=== PATIENT | female | born 1995 | race Caucasian/White ===

== ENCOUNTER 2016-12-17 21:37 | Observation (INO) | payer BC ==
[2016-12-17] MEDS ORDERED: HYDROmorphONE/DILAUDID 1 MG/ML SYR IVP ONE (22:08)
[2016-12-17] MEDS ORDERED: ONDANSETRON 4 MG/2 ML VIAL IVP ONE (22:08)
[2016-12-17] MEDS ORDERED: NS 1,000 ML IV ONE (22:08)
[2016-12-17 23:08] LABS: % IMMATURE GRANULYOCYTES 0.3 % (0.0-1.1); ABSOLUTE IMMATURE GRANULOCYTES 0.05 10^3/uL (0.00-0.10); ADD DIFF? NO; ADD MORPH? NO; ADD SCAN? NO; ATYPICAL LYMPHOCYTE FLAG 0 (0-99); FRAGMENT RBC FLAG 0 (0-99); LEFT SHIFT FLG 0 (0-99); LIPEMIA HEMOLYSIS FLAG 90 (0-99); MEAN CELL HEMOGLOBIN 29.3 pg (27.9-34.1); MEAN CELL HEMOGLOBIN CONCENTR. 34.8 g/dL (32.4-36.7); MEAN CELL VOLUME 84.2 fL (81.5-99.8); PLATELET CLUMPS FLAG 0 (0-99); PLATELET COUNT 358 10^3/uL (150-400); RED BLOOD CELL COUNT 5.46 10^6/uL (4.18-5.33); RED CELL DISTRIBUTION WIDTH 12.7 % (11.5-15.2)
[2016-12-17 23:24] LABS: ALANINE AMINOTRANSFERASE 24 IU/L (9-52); ALBUMIN 4.7 g/dL (3.5-5.0); ALKALINE PHOSPHATASE 73 IU/L (38-126); ANION GAP 13 mEq/L (8-16); ASPARTATE AMINOTRANSFERASE 25 IU/L (14-46); BILIRUBIN-CONJUGATED 0.4 mg/dL (0.0-0.5); BILIRUBIN-UNCONJUGATED 0.6 mg/dL (0.0-1.1); CARBON DIOXIDE 25 mEq/l (22-31); CHLORIDE 105 mEq/L (97-110); CREATININE 0.7 mg/dL (0.6-1.0); GLOMERULAR FILTRATION RATE > 60; GLUCOSE 82 mg/dL (70-100); POTASSIUM 3.7 mEq/L (3.5-5.2); SODIUM 143 mEq/L (134-144)
[2016-12-18 00:11] LABS: COLOR YELLOW; LEUKOCYTE ESTERASE,URINE TRACE (NEGATIVE); NITRITE,URINE NEGATIVE (NEGATIVE)
[2016-12-18 00:17] LABS: BACTERIA TRACE /hpf (NONE SEEN); MUCUS 1+ /lpf (NONE-1+)
[2016-12-18] MEDS ORDERED: IOPAMIDOL (ISOVUE-300) 100 ML BTL IV ONE (00:38)
--- NOTE | 2016-12-18 00:41 | EDPHY ---
H & P Stated Complaint: abd pain, vomiting, diarrhea today, also abnormal vaginal bleeding - Personal History Current Tetanus/Diphtheria Vaccine: Unsure Current Tetanus Diphtheria and Acellular Pertussis (TDAP): Unsure - Medical/Surgical History Hx Asthma: No Hx Chronic Respiratory Disease: No Hx Diabetes: No Hx Cardiac Disease: No Hx Renal Disease: No Hx Cirrhosis: No Hx Alcoholism: No Hx HIV/AIDS: No Hx Splenectomy or Spleen Trauma: No Other PMH: none - Social History Smoking Status: Never smoked HPI/ROS: Chief complaint: Abdominal pain History of present illness: This is a 20-year-old female who presents to the emergency department for evaluation of abdominal pain. Patient reports the onset of symptoms today. She has had associated nausea and vomiting as well as diarrhea. She is also concerned she has had some vaginal bleeding. She states she has an IUD in place and therefore normally she gets spotting but this is more heavy than usual. She denies specific precipitating factors. She denies alleviating factors. She denies other associated signs or symptoms including no fevers and no urinary symptoms. Review of systems: A 10 point review of systems was obtained and other than described above was negative (Damion Iyer) - Physical Exam Exam: General Appearance: Alert, nontoxic. Eyes: Pupils equal and round no pallor or injection. ENT, Mouth: Mucous membranes moist. Respiratory: There are no retractions, lungs are clear to auscultation. Cardiovascular: Regular rate and rhythm. Gastrointestinal: Bowel sounds are normal. Abdomen is soft and nondistended. There is diffuse tenderness throughout the left upper and lower quadrants bilaterally including McBurney's. No Jade sign. No peritoneal signs. Neurological: Alert and oriented. Strength and sensation intact and symmetrical. Skin: Warm and dry, no rashes. Musculoskeletal: Neck is supple nontender. Extremities are symmetrical, full range of motion. Psychiatric: Patient is oriented X 3, there is no agitation. (Damion Iyer) Constitutional: Initial Vital Signs Temperature (C) 36.8 C 12/17/16 21:43 Heart Rate 123 H 12/17/16 21:43 Respiratory Rate 16 12/17/16 21:43 Blood Pressure 138/83 H 12/17/16 21:43 O2 Sat (%) 94 12/17/16 21:43 O2 Delivery Mode Room Air Allergies/Adverse Reactions: No Known Allergies Allergy (Verified 12/17/16 21:46) Home Medications: Medication Instructions Recorded Nitrofurantoin Monohyd/M-Cryst 100 mg PO BID #4 capsule 12/18/16 [Macrobid 100 mg Capsule] Medical Decision Making ED Course/Re-evaluation: Patient seen in conjunction with my secondary supervising physician Dr. Buster Perez. Patient presents to the emergency department for evaluation of abdominal pain with nausea, vomiting and diarrhea. Further she has vaginal bleeding more heavy than usual. On presentation she is nontoxic. She is tachycardic. She is tender to palpation on examination of the abdomen. Blood studies concerning for an elevated white blood cell count. Ultrasound of the pelvis is unremarkable. Nondiagnostic of appendix. She is symptomatically treated and reports improvement in symptoms but continues to have abdominal pain. Therefore CT scan will be pursued. Care of patient is turned over Dr. Buster Perez at end of shift pending CT scan results. (Damion Iyer) CT scan of the abdomen pelvis with IV contrast The results of the study are this shows abnormal ileum, 20 cm section of acute inflammation, mesenteric edema and free fluid in the abdomen.. Normal appendix. The study was read by Dr. Coulter. I viewed the images myself on the PACS system. 0144: I did consult Dr. Segundo. Does not think based on the history and exam findings and CT and blood work that this an acute surgical abdomen. He does recommend patient getting admitted to the medicine service for a Medical ileitis. He Will consult if they need him. 0153AM: Spoke with Gastroenterology: Sidra Ward with Ster[facility]. Recommends medical admission will consult on patient. 0158AM: Spoke with Dr. Myers Hospalist who agrees to admit this patient. At this time this patient is hemodynamically stable no acute distress no fever no vomiting abdomen remained soft there is no peritoneal signs blood work has been reviewed shows a leukocytosis and a lactic acid that is normal. Most likely with mesenteric edema, free fluid in the abdomen, an abnormal section of ileum this is most likely ileitis versus Crohn's disease versus enteritis. Will keep in the hospital for close monitoring of the abdomen serial abdominal exams nausea vomiting control and IV hydration. Patient agrees for this plan. ( Buster Perez) Differential Diagnosis: Included but not limited to gastritis, gastroenteritis, biliary tract disease, pancreatitis, colitis, appendicitis, pelvic inflammatory disease, ovarian cyst or ovarian torsion, with associated complications she, urinary tract infection (Damion Iyer) 0139: re-examination at this time the patient is resting comfortably she is not vomiting she has no fever. Abdomen remained soft she has no peritoneal signs. Her CT scan has been reviewed and does show significant amount of abnormality of inflammation of her ileum like a 20CM length of inflammation, also has mesenteric edema and free fluid. Due to these abnormal findings I have hung a 2nd L fluid, I will check a lactic acid and will consult surgery. ( Buster Perez) - Data Points Laboratory Results: Laboratory Results 12/17/16 22:55 12/17/16 22:55 Medications Given: Discontinued Medications Hydromorphone HCl (Dilaudid) 0.5 mg IVP EDNOW ONE Stop: 12/17/16 22:09 Last Admin: 12/17/16 22:55 Dose: 0.5 mg Hydromorphone HCl (Dilaudid) 0.2 - 0.4 mg IVP Q4HRS PRN PRN Reason: Pain, Severe Unable to Take PO Stop: 12/28/16 02:17 Last Admin: 12/18/16 02:43 Dose: 0.4 mg Sodium Chloride (Ns) 1,000 mls @ 0 mls/hr IV ONCE ONE PRN Reason: Wide Open Stop: 12/17/16 22:09 Last Admin: 12/17/16 22:55 Dose: 1,000 mls Sodium Chloride (Ns) 1,000 mls @ 3,000 mls/hr IV ONCE ONE Stop: 12/18/16 01:45 Last Admin: 12/18/16 01:36 Dose: 1,000 mls Ceftriaxone Sodium/Dextrose (Rocephin 1 Gm (Premix)) 50 mls @ 100 mls/hr IV DAILY ANNIE PRN Reason: Protocol Stop: 01/17/17 11:29 Last Admin: 12/18/16 11:52 Dose: 50 mls Methylprednisolone Sodium Succinate (Solu-Medrol) 125 mg IVP EDNOW ONE Stop: 12/18/16 01:55 Last Admin: 12/18/16 02:04 Dose: 125 mg Ondansetron HCl (Zofran) 4 mg IVP EDNOW ONE Stop: 12/17/16 22:09 Last Admin: 12/17/16 22:56 Dose: 4 mg Departure - Departure Disposition: [facility] Inpatient Acute Clinical Impression: Abdominal pain Qualifiers: Abdominal location: generalized Qualified Code(s): R10.84 - Generalized abdominal pain Condition: Good
[2016-12-18] MEDS ORDERED: NS 1,000 ML IV ONE (01:26)
[2016-12-18] MEDS ORDERED: methylPREDNISolone SOD SUCC 125 MG/2 ML VIAL IVP ONE (01:54)
[2016-12-18] MEDS ORDERED: methylPREDNISolone SOD SUCC 125 MG/2 ML VIAL ONE (01:59)
[2016-12-18] MEDS ORDERED: ONDANSETRON DISINTEGRATING 4 MG TAB PO PRN (02:18)
[2016-12-18] MEDS ORDERED: ACETAMINOPHEN 325 MG TAB PO PRN (02:18)
[2016-12-18] MEDS ORDERED: HYDROmorphONE/DILAUDID 1 MG/ML SYR IVP PRN (02:18)
[2016-12-18] MEDS ORDERED: ONDANSETRON 4 MG/2 ML VIAL IVP PRN (02:18)
[2016-12-18] MEDS ORDERED: HYDROmorphONE/DILAUDID 1 MG/ML SYR ONE (02:26)
[2016-12-18] MEDS ORDERED: NS 1,000 ML IV SCH (02:30)
--- NOTE | 2016-12-18 02:43 | GHP ---
[f rep st] HISTORY AND PHYSICAL DATE OF ADMISSION: 12/18/2016 CHIEF COMPLAINT: Abdominal pain, nausea, vomiting and diarrhea. HISTORY OF PRESENT ILLNESS: This is a 20-year-old female who last night developed abdominal pain, m ostly epigastric with nausea, vomiting and diarrhea. It has continued today although she is feeling a little bit better. She has been able to eat some but has had significant decreased p.o. intake. Before that, she describes a sensitive stomach but has not had any episodes of chronic diarrhea or blood in her stools. No weight loss. REVIEW OF SYSTEMS: A 10-point review of systems was obtained and was negative. PAST MEDICAL HISTORY: None. MEDICATIONS: IUD. SOCIAL HISTORY: No smoking or alcohol. FAMILY HISTORY: No history of autoimmune disease, Crohn's or ulcerative colitis. PHYSICAL EXAMINATION: VITAL SIGNS: Afebrile, blood pressure is 119/66, heart initially 123, is now at 85, oxygen saturation 94% on room air. GENERAL: The patient is well developed, in no apparent distress. HEENT: Nonicteric sclerae. Extraocular movements intact. Moist mucous membranes. NECK: Supple. No thyromegaly. LUNGS: Good effort. Clear to auscultation bilaterally. CARDIOVASCULAR : Regular rate and rhythm. No murmurs, gallops. ABDOMEN: Positive bowel sounds. Soft. Mild epi gastric tenderness. No rebound or guarding. EXTREMITIES: No clubbing, cyanosis, or edema. SKIN: Without rash, dry, intact. NEUROLOGIC: Alert and oriented x3. Moving all 4 extremities equally. PSYCH: Normal affect. LABORATORY DATA: White blood cell count 15, hemoglobin 15, platelets are 358. Chemistries completel y normal. UA has some blood in it but otherwise negative. CT scan, per ER physician, shows terminal ilium inflammation as well as some small bowel inflammatio n. ASSESSMENT: This is a 20-year-old female presenting with acute abdominal pain, nausea, vomiting and diarrhea. Probable gastroenteritis. The patient is not endorsing any chronic symptoms that would suggest infl ammatory bowel disease. It seems to be infectious in origin. We will get a GI PCR panel. We will give IV fluids and monitor. If she is improving tomorrow and is eating she can probably go home. /[id number]/MODL
[2016-12-18 05:17] LABS: % IMMATURE GRANULYOCYTES 0.4 % (0.0-1.1); ABSOLUTE IMMATURE GRANULOCYTES 0.05 10^3/uL (0.00-0.10); ADD DIFF? NO; ADD MORPH? NO; ADD SCAN? NO; ATYPICAL LYMPHOCYTE FLAG 0 (0-99); FRAGMENT RBC FLAG 0 (0-99); HEMATOCRIT 41.8 % (38.0-47.0); HEMOGLOBIN 13.9 g/dL (12.6-16.3); LEFT SHIFT FLG 0 (0-99); LIPEMIA HEMOLYSIS FLAG 80 (0-99); MEAN CELL HEMOGLOBIN 28.7 pg (27.9-34.1); MEAN CELL HEMOGLOBIN CONCENTR. 33.3 g/dL (32.4-36.7); MEAN CELL VOLUME 86.2 fL (81.5-99.8); MEAN PLATELET VOLUME 10.1 fL (8.7-11.7); PLATELET CLUMPS FLAG 0 (0-99); PLATELET COUNT 297 10^3/uL (150-400); RED BLOOD CELL COUNT 4.85 10^6/uL (4.18-5.33); RED CELL DISTRIBUTION WIDTH 12.8 % (11.5-15.2)
[2016-12-18 05:36] LABS: ALANINE AMINOTRANSFERASE 18 IU/L (9-52); ALBUMIN 3.9 g/dL (3.5-5.0); ALKALINE PHOSPHATASE 55 IU/L (38-126); ANION GAP 12 mEq/L (8-16); ASPARTATE AMINOTRANSFERASE 23 IU/L (14-46); CALCIUM 8.7 mg/dL (8.5-10.4); CARBON DIOXIDE 18 mEq/l (22-31); CHLORIDE 110 mEq/L (97-110); CREATININE 0.6 mg/dL (0.6-1.0); GLOMERULAR FILTRATION RATE > 60; GLUCOSE 121 mg/dL (70-100); POTASSIUM 4.2 mEq/L (3.5-5.2); SODIUM 140 mEq/L (134-144); TOTAL PROTEIN 6.7 g/dL (6.3-8.2)
[2016-12-18 05:49] VITALS: O2SAT 96
[2016-12-18 09:24] VITALS: BP 115/62; PULSE 89; RESP 16; TEMP 98.2
--- NOTE | 2016-12-18 15:01 | GDS ---
[f rep st] DISCHARGE SUMMARY CHIEF COMPLAINT: 1. Abdominal pain. Suspected gastroenteritis. 2. Leukocytosis. 3. Urinary tract infection. HISTORY OF PRESENT ILLNESS: Patient is a 20-year-old female with no past medical history, who presented with sudden onset of crampy abdominal pain in the epigastric region with nausea, vomiting and diarrhea. She was able to eat a little bit; but had significantly decreased p.o. intake. She denies black or blood in stools. No rash or joint pain or swelling. No weight loss. ASSESSMENT AND PLAN: 1. Likely gastroenteritis: The patient with no further diarrhea here; thus, could not obtain a GI panel. She is tolerating p.o. today and wishes to go home. 2. Urinary tract infection: Urinalysis with few WBCs and suprapubic tenderness. Dose ceftriaxone today. DC with Macrobid for 2 more days. This may be contributing to some of her symptoms. 3. Leukocytosis: WBC initially 15, now trending down to 12. DISPOSITION: Patient is stable for discharge. FOLLOWUP: PCP. PE: afebrile GEN: NAD, CV: RRR, Lungs: CTA, BL, GI: soft, NT, ND, +BS : left suprapubic TTP , Neuro: no focal deficitd /[id number]/MODL MTDD
== END 2016-12-18 15:47 | disposition home or self-care (01) ==
LOC: INTOOBSV 12-18 01:59 → F3E 12-18 02:22
PROVIDERS: ADMIT Internal Medicine; ATTEND Internal Medicine
DX: R10.84 Generalized abdominal pain (principal); R11.2 Nausea with vomiting, unspecified; N39.0 Urinary tract infection, site not specified; D72.829 Elevated white blood cell count, unspecified
CPT/HCPCS: 74177; 76705; 76856; G0378; 96374; J0696; J1170; J2405; Q9967

== ENCOUNTER → 2017-03-21 | Outpatient (CLI) | payer BC ==
[~2017-03-21] MED LIST: GADOBUTROL 10 ML VIAL IVP ONE; GLUCAGON,HUMAN RECOMBINANT 0.3 MG in SYRINGE 0.3 ML IVP ONE
== END ==
LOC: FIMAGING 07:15
PROVIDERS: ATTEND Internal Medicine Gastroenterology
DX: R93.5 Abnormal findings on diagnostic imaging of other abdominal regions, including retroperitoneum (principal)
CPT/HCPCS: A9585; J1610

== ENCOUNTER 2018-01-28 23:10 | Observation (INO) | payer BC ==
[2018-01-28] MEDS ORDERED: NS 1,000 ML IV ONE (23:59)
[2018-01-28] MEDS ORDERED: KETOROLAC 15 MG/1 ML SDV IVP ONE (23:59)
[2018-01-28] MEDS ORDERED: FAMOTIDINE 20 MG/NACL 50 ML IV ONE (23:59)
--- NOTE | 2018-01-29 00:49 | EDPHY ---
H & P Stated Complaint: R flank/back and abd pain Time Seen by Provider: 01/28/18 23:47 HPI/ROS: HPI The patient presents with right lower quadrant abdominal pain which radiates to her right upper quadrant and right flank. Her symptoms began about an hour after eating a large lunch at 2:00 p.m.. They have gotten progressively worse throughout the course of the day. The pain is dull for the most part, though when it becomes more severe it feels sharp. It is getting progressively worse over the course of the day. It is worse with ambulation. She has associated nausea. She does not have any dysuria, she does not have any diarrhea or constipation. She had similar pain about 1 year ago and was diagnosed with a urinary tract infection.. REVIEW OF SYSTEMS Constitutional: No fever, no chills. Eyes: No discharge. ENT: No sore throat. Cardiovascular: No chest pain, no palpitations. Respiratory: No cough, no shortness of breath. Gastrointestinal: See HPI Genitourinary: No hematuria. Musculoskeletal: No back pain. Skin: No rashes. Neurological: No headache. PMHx: History of urinary tract infection Soc Hx: College student PHYSICAL General Appearance: Alert, no distress Eyes: Pupils equal and round no pallor or injection ENT, Mouth: Mucous membranes moist Respiratory: There are no retractions, lungs are clear to auscultation Cardiovascular: Regular rate and rhythm Gastrointestinal: Abdomen is soft with tenderness in the right lower quadrant and mild tenderness in the right upper quadrant without rebound or guarding Neurological: A&O, moves all extremities Skin: Warm and dry, no rashes Musculoskeletal: Neck is supple non tender Extremities: symmetrical, full range of motion Psychiatric: Patient is oriented X 3, there is no agitation Source: Patient Exam Limitations: No limitations - Personal History LMP (Females 10-55): IUD In Place Current Tetanus Diphtheria and Acellular Pertussis (TDAP): Yes - Medical/Surgical History Hx Asthma: No Hx Chronic Respiratory Disease: No Hx Diabetes: No Hx Cardiac Disease: No Hx Renal Disease: No Hx Cirrhosis: No Hx Alcoholism: No Hx HIV/AIDS: No Hx Splenectomy or Spleen Trauma: No Other PMH: wisdom teeth - Social History Smoking Status: Never smoked Constitutional: Initial Vital Signs Temperature (C) 37.2 C 01/28/18 23:12 Heart Rate 106 H 01/28/18 23:12 Respiratory Rate 16 01/28/18 23:12 Blood Pressure 131/96 H 01/28/18 23:12 O2 Sat (%) 93 01/28/18 23:12 O2 Delivery Mode Room Air Allergies/Adverse Reactions: No Known Allergies Allergy (Verified 01/28/18 23:11) Home Medications: Medication Instructions Recorded NK [No Known Home Meds] 01/28/18 Medical Decision Making - Diagnostics Imaging Results: Ultrasound right lower quadrant demonstrates appendicitis, measuring up to 11 mm with hyperemia and trace free fluid. Ultrasound pelvis demonstrates IUD in good position, with 16 mm right-sided ovarian follicle a small amount of free fluid. This is discussed with Dr. Acevedo of Radiology. Imaging: Discussed imaging studies w/ rn call center Radiologist, I viewed and interpreted images myself Procedures: Bedside limited abdominal Ultrasound- performed and interpreted by me. Indication: Right-sided abdominal pain Findings: Normal appearing gallbladder with no gallstones, no pericholecystic fluid, no gallbladder wall thickening; no right-sided hydronephrosis Impression: No hydronephrosis on the right, no sonographic evidence of cholecystitis or cholelithiasis. Differential Diagnosis: This is a 22-year-old healthy female who presents with right lower quadrant abdominal pain for the last several hours associated with nausea. On exam, she is tender in the right lower quadrant, also mildly tender in the right upper quadrant. Differential diagnosis includes appendicitis, ovarian cyst with torsion, ovarian cyst rupture, renal colic, biliary colic. In the emergency department, plan for pain medication, basic labs, ultrasound. I performed a bedside ultrasound to look at her right kidney which demonstrated no hydronephrosis, her gallbladder appear normal. Labs were checked and did reveal leukocytosis of 17,000. Formal right lower quadrant ultrasound did reveal findings consistent with appendicitis. I have consulted with Dr. Liang. We plan to admit her for appendicitis for OR later today. I have ordered antibiotics. I have discussed the diagnosis and general treatment plan with the patient. I have answered all of her questions. - Data Points Laboratory Results: Laboratory Results 01/28/18 23:59 01/28/18 23:59 01/29/18 01/28/18 01/28/18 00:50 23:59 23:59 WBC 17.04 10^3/uL H 10^3/uL (3.80-9.50) RBC 5.21 10^6/uL 10^6/uL (4.18-5.33) Hgb 14.4 g/dL g/dL (12.6-16.3) Hct 42.8 % % (38.0-47.0) MCV 82.1 fL fL (81.5-99.8) MCH 27.6 pg L pg (27.9-34.1) MCHC 33.6 g/dL g/dL (32.4-36.7) RDW 12.7 % % (11.5-15.2) Plt Count 321 10^3/uL 10^3/uL (150-400) MPV 9.8 fL fL (8.7-11.7) Neut % (Auto) 82.2 % H % (39.3-74.2) Lymph % (Auto) 9.6 % L % (15.0-45.0) Rhea % (Auto) 6.5 % % (4.5-13.0) Eos % (Auto) 0.8 % % (0.6-7.6) Baso % (Auto) 0.4 % % (0.3-1.7) Nucleat RBC Rel Count 0.0 % % (0.0-0.2) Absolute Neuts (auto) 14.01 10^3/uL H 10^3/uL (1.70-6.50) Absolute Lymphs (auto) 1.63 10^3/uL 10^3/uL (1.00-3.00) Absolute Monos (auto) 1.10 10^3/uL H 10^3/uL (0.30-0.80) Absolute Eos (auto) 0.14 10^3/uL 10^3/uL (0.03-0.40) Absolute Basos (auto) 0.07 10^3/uL 10^3/uL (0.02-0.10) Absolute Nucleated RBC 0.00 10^3/uL 10^3/uL (0-0.01) Immature Gran % 0.5 % % (0.0-1.1) Immature Gran # 0.09 10^3/uL 10^3/uL (0.00-0.10) Sodium 144 mEq/L mEq/L (135-145) Potassium 3.7 mEq/L mEq/L (3.5-5.2) Chloride 104 mEq/L mEq/L (97-110) Carbon Dioxide 24 mEq/l mEq/l (22-31) Anion Gap 16 mEq/L mEq/L (8-16) BUN 9 mg/dL mg/dL (7-23) Creatinine 0.6 mg/dL mg/dL (0.6-1.0) Estimated GFR > 60 Glucose 98 mg/dL mg/dL (70-100) Calcium 10.2 mg/dL mg/dL (8.5-10.4) Total Bilirubin 0.5 mg/dL mg/dL (0.1-1.4) AST 27 IU/L IU/L (14-46) ALT 26 IU/L IU/L (9-52) Alkaline Phosphatase 75 IU/L IU/L (38-126) Total Protein 8.2 g/dL g/dL (6.3-8.2) Albumin 4.8 g/dL g/dL (3.5-5.0) Lipase 145 IU/L IU/L (23-300) Urine Color YELLOW Urine Appearance CLEAR Urine pH 6.0 (5.0-7.5) Ur Specific [place] 1.009 (1.002-1.030) Urine Protein NEGATIVE (NEGATIVE) Urine Ketones NEGATIVE (NEGATIVE) Urine Blood NEGATIVE (NEGATIVE) Urine Nitrate NEGATIVE (NEGATIVE) Urine Bilirubin NEGATIVE (NEGATIVE) Urine Urobilinogen NEGATIVE EU EU (0.2-1.0) Ur Leukocyte Esterase NEGATIVE (NEGATIVE) Urine Glucose NEGATIVE (NEGATIVE) Medications Given: Sodium Chloride (Ns) 1,000 mls @ 200 mls/hr IV CONT ANNIE Stop: 07/28/18 01:44 Last Admin: 01/29/18 02:21 Dose: 1,000 mls Discontinued Medications Hydromorphone HCl (Dilaudid) 0.5 mg IVP EDNOW ONE Stop: 01/29/18 01:39 Last Admin: 01/29/18 02:32 Dose: Not Given Sodium Chloride (Ns) 1,000 mls @ 0 mls/hr IV EDNOW ONE; Wide Open PRN Reason: Protocol Stop: 01/29/18 00:00 Last Admin: 01/29/18 00:08 Dose: 1,000 mls Famotidine/Sodium Chloride (Pepcid 20 Mg (Premix)) 50 mls @ 200 mls/hr IV EDNOW ONE Stop: 01/29/18 00:13 Last Admin: 01/29/18 00:10 Dose: 50 mls Ceftriaxone Sodium/Dextrose (Rocephin 1 Gm (Premix)) 50 mls @ 100 mls/hr IV EDNOW ONE PRN Reason: Protocol Stop: 01/29/18 01:58 Last Admin: 01/29/18 01:54 Dose: 50 mls Metronidazole/Sodium Chloride (Flagyl 500 Mg (Premix)) 100 mls @ 100 mls/hr IV EDNOW ONE PRN Reason: Protocol Stop: 01/29/18 02:28 Last Admin: 01/29/18 02:32 Dose: 100 mls Ketorolac Tromethamine (Toradol) 15 mg IVP EDNOW ONE Stop: 01/29/18 00:00 Last Admin: 01/29/18 00:09 Dose: 15 mg Departure - Departure Disposition: [facility] Inpatient Acute Clinical Impression: Acute appendicitis Qualifiers: Acute appendicitis type: with localized peritonitis Qualified Code(s): K35.3 - Acute appendicitis with localized peritonitis Condition: Fair
[2018-01-29 00:54] LABS: PLATELET COUNT 321 10^3/uL (150-400)
[2018-01-29] MEDS ORDERED: HYDROmorphONE/DILAUDID 2 MG/ML INJ IVP ONE (01:38)
[2018-01-29] MEDS ORDERED: NS 1,000 ML IV SCH (01:45)
--- NOTE | 2018-01-29 02:31 | PDCONSULT ---
Medical Reception Note: CHIEF COMPLAINT: Right lower quadrant abdominal pain HISTORY OF PRESENT ILLNESS: This is a 22-year-old woman who presents with less than 24 hr history of abdominal pain starting as a stomach ache yesterday afternoon associated with nausea diaphoresis and chills. Pain subsequently localized in the right lower quadrant. She has no other symptoms. Pain relieved by narcotic medications in the hospital. Ultrasound and examination consistent with acute appendicitis. I was called for consultation regarding this diagnosis PAST MEDICAL HISTORY: None PAST SURGICAL HISTORY: [place] teeth extraction, IUD placement MEDICATION: None ALLERGIES: Andrew extract FAMILY HISTORY: Denies family history of bleeding dyscrasias, anesthetic issues or GI cancers SOCIAL HISTORY: Occasional alcohol denies smoking or drug use REVIEW OF SYSTEMS: Significant for abdominal pain nausea and diaphoresis along with rigors this is consistent with above diagnosis. All others reviewed and are negative OBJECTIVE: Temp Pulse Resp BP Pulse Ox 37.1 C 97 18 126/77 H 95 01/29/18 01:50 01/29/18 02:19 01/29/18 02:19 01/29/18 02:19 01/29/18 02:19 Alert oriented minimal distress Sclerae are anicteric extraocular motions intact oropharynx slightly dry Good dentition trachea midline no JVD or thyromegaly No cervical or supraclavicular adenopathy Regular rate and rhythm Clear to auscultation bilaterally no wheezes Abdomen soft tender in the right lower quadrant/flank. Minimal right CVA tenderness no rebound tenderness no psoas sign. No scars no hepatosplenomegaly Extremities 2+ over 2+ femoral dorsalis pedis pulses 2+ over 2+ radial pulses full range of motion muscle strength symmetric Skin normal turgor and tone Normal affect behavior normal LABS: 01/28/18 23:59 01/28/18 23:59 Total Bilirubin 0.5 mg/dL (0.1-1.4) 01/28/18 23:59 AST 27 IU/L (14-46) 01/28/18 23:59 ALT 26 IU/L (9-52) 01/28/18 23:59 IMAGING: Ultrasound personally on PACS reviewed tubular structure noncompressible right lower quadrant consistent with appendicitis IMPRESSION/PLAN: Acute appendicitis antibiotics had been given for treatment as and initiation of care. Laparoscopic appendectomy and other options including non operative care were discussed with the patient. All questions were addressed patient has opted for surgery. The risks benefits and alternatives to this procedure open clearly outlined verbal confirmation of understanding was obtained prior to getting written consent. The risks include but are not limited to bleeding, infection, injury to other structures that could require for surgery. We will proceed at the earliest opportunity.
[2018-01-29] MEDS ORDERED: ONDANSETRON 4 MG/2 ML VIAL IVP ONE (02:33)
[2018-01-29] MEDS ORDERED: BUPIVACAINE 0.5% 30 ML SDV ONE (02:36)
[2018-01-29] MEDS ORDERED: LR 1,000 ML IV SCH (03:00)
[2018-01-29] MEDS: LIDOCAINE 1% 300 MG/30 ML SDV ONE ×2 (04:12→06:28)
[2018-01-29] MEDS ORDERED: PROPOFOL 200 MG/20 ML VIAL ONE ×2 (05:53→05:55)
[2018-01-29] MEDS ORDERED: fentaNYL 100 MCG/2 ML INJ ONE ×2 (05:59→07:20)
[2018-01-29] MEDS ORDERED: KETOROLAC 15 MG/1 ML SDV IVP SCH (06:00)
[2018-01-29] MEDS ORDERED: DEXAMETHASONE 4 MG/ML VIAL IVP PRN (06:16)
[2018-01-29] MEDS ORDERED: ONDANSETRON 4 MG/2 ML VIAL IVP PRN (06:16)
[2018-01-29] MEDS ORDERED: ALBUTEROL 3 ML DEYVIAL IH PRN (06:16)
[2018-01-29] MEDS ORDERED: NS 500 ML IV PRN (06:16)
[2018-01-29] MEDS ORDERED: HYDROmorphONE/DILAUDID 2 MG/ML INJ IVP PRN (06:16)
[2018-01-29] MEDS ORDERED: LR 500 ML IV PRN (06:16)
[2018-01-29] MEDS ORDERED: NALOXONE HCL 0.4 MG/ML INJ IVP PRN (06:16)
--- NOTE | 2018-01-29 06:16 | PDANEPAE ---
ANE History of Present Illness here for lap lawrence SHARYN Past Medical History - Cardiovascular History Hx Hypertension: No Hx Arrhythmias: No Hx Chest Pain: No Hx Coronary Artery / Peripheral Vascular Disease: No Hx CHF / Valvular Disease: No Hx Palpitations: No - Pulmonary History Hx COPD: No Hx Asthma/Reactive Airway Disease: No Hx Recent Upper Respiratory Infection: No Hx Oxygen in Use at Home: No Hx Sleep Apnea: No - Endocrine History Hx Diabetes: No Hypothyroid: No Hyperthyroid: No Obesity: no - Renal History Hx Renal Disorders: No - Liver History Hx Hepatic Disorders: No - Neurological & Psychiatric Hx Hx Neurological and Psychiatric Disorders: No - Chronic Pain History Chronic Pain: No ANE Review of Systems Review of systems is: negative Review of Systems: - Exercise capacity Exercise capacity: >=4 METS ANE Patient History - Allergies Allergies/Adverse Reactions: No Known Allergies Allergy (Verified 01/28/18 23:11) - Home Medications Home medications: home medication list seen and reviewed Home Medications: NK [No Known Home Meds] 01/28/18 [Last Taken Unknown] - NPO status NPO Status: no food or drink >8 hours NPO Since - Liquids (Date): 02/28/18 NPO Since - Liquids (Time): 22:00 NPO Since - Solids (Date): 02/28/18 NPO Since - Solids (Time): 22:00 - Anes Hx Anes Hx: no prior problems - Smoking Hx Smoking Status: Never smoked ANE Labs/Vital Signs - Labs Result Diagrams: 01/28/18 23:59 01/28/18 23:59 - Vital Signs Vital Signs: reviewed preoperatively; see RN documention for details Blood Pressure: 112/81 Heart Rate: 96 Respiratory Rate: 16 O2 Sat (%): 95 Height: 154.94 cm Weight: 63.5 kg ANE Physical Exam - Airway Neck exam: FROM Mallampati Score: Class 1 - Pulmonary Pulmonary: no respiratory distress - Cardiovascular Cardiovascular: regular rate and rhythym - ASA Status ASA Status: I ANE Anesthesia Plan Anesthesia Plan: general endotracheal anesthesia
[2018-01-29] MEDS ORDERED: SUGAMMADEX SODIUM 200 MG/2 ML VIAL IVP ONE (06:40)
--- NOTE | 2018-01-29 06:51 | POSTOPPROG ---
Post Op Note Date of Operation: 01/29/18 Surgeon: Jarad Liang Associate Chemist: none Anesthesiologist: Ruddy Yanes Anesthesia: GET(General Endotracheal) Pre-op Diagnosis: Appendicitis Post-op Diagnosis: same Procedure: Laparoscopic appendectomy Findings: acute appendiceal inflammation Inf/Abcess present in the surg proc area at time of surgery?: Yes Depth: Organ Space EBL: Minimal Specimen(s): Appendix
--- NOTE | 2018-01-29 06:58 | POSTANESTH ---
Post Anesthetic Evaluation Cardiovascular Status: Normal, Stable Respiratory Status: Normal, Stable Level of Consciousness/Mental Status: Can Participate in Eval Pain Control: Adequate, Prn Tx Ordered Nausea/Vomiting Control: Adequate, Prn Tx Ordered Complications Possibly Related to Anesthesia: None Noted Notes: provided pre op counseling regarding suggamadex and ocp interaction and given written instructions
--- NOTE | 2018-01-29 07:09 | GOP ---
[f rep st] OPERATIVE REPORT DATE OF OPERATION: 01/29/2018 SURGEON: Jarad Liang MD ANESTHESIA: General endotracheal anesthesia. ANESTHESIOLOGIST: Ruddy Yanes MD. PREOPERATIVE DIAGNOSIS: Acute appendicitis. POSTOPERATIVE DIAGNOSIS: Acute appendicitis. PROCEDURE PERFORMED: Laparoscopic appendectomy. FINDINGS: Acute appendicitis, nonsuppurative in the right pericolic gutter. SPECIMENS: Appendix to permanent pathology. INDICATIONS: This is a 22-year-old woman who presents with signs of acute appendicitis. Ultrasound confirmed. White count of 17,000. Received antibiotics in the emergency room. The patient has been brought in electively for appendectomy. DESCRIPTION OF PROCEDURE: Patient was brought to the operating room. After induction of endotrachea l anesthesia in a supine position, abdomen was prepped with chlorhexidine and draped sterilely. Time -out procedure was performed according to institutional standards. Local anesthetic was infused in s kin and subcutaneous tissues of the trocar site. An open supraumbilical trocar placement was perform ed in a standard fashion. The abdomen was insufflated to 15 TOR with carbon dioxide and working troc ars were placed in the lower midline under direct visualization. The appendix was brought to the fie ld of dissection. LigaSure was used to dissect the mesentery and a RACHELLE stapler was used to divide th e bowel flush with the base. The staple line was bleeding so it was clipped for hemostasis which was complete. The appendix was brought out through the umbilical incision protected by the trocar. Wor diamond trocars were removed. The patient tolerated the procedure well. The fascia was reapproximated using 0 Vicryl and all ports were reapproximated at skin level using 4-0 Monocryl. Dermabond was ana lied. The patient awakened, extubated and taken to recovery room. Needle, instrument, and sponge co unts verified correct x2. /[id number]/MODL
[2018-01-29] MEDS: fentaNYL 100 MCG/2 ML INJ IVP PRN ×2 (07:22→07:31)
[2018-01-29 09:07] VITALS: BP 110/65
== END 2018-01-29 10:35 | disposition home or self-care (01) ==
LOC: FOB 01-29 06:45
PROVIDERS: ADMIT Surgery; ATTEND Surgery
PROC: 0DTJ4ZZ Resection of Appendix, Percutaneous Endoscopic Approach (ICD-10-PCS; principal; 2018-01-29 06:00)
DX: K35.3 Acute appendicitis with localized peritonitis (principal); Z97.5 Presence of (intrauterine) contraceptive device
CPT/HCPCS: 44970; 76705; 76856; G0378; 96365; J0696; J1885; J2704; J3010